=== PATIENT | female | born 1960 | race Caucasian/White ===

== ENCOUNTER 2019-12-20 12:59 | Inpatient (IN) | payer OTHER ==
[~2019-12-20] VITALS: Ht 165.1 cm; Wt 70.3 kg
[2019-12-20 13:00] VITALS: BP 132/72
[2019-12-20] MEDS ORDERED: FLUOXETINE HCL40 MG PO (13:05)
[2019-12-20] MEDS ORDERED: BACTRIM DS TAB1 EACH PO (13:06)
[2019-12-20] MEDS ORDERED: NORCO 5-325 TA1 EAC1 PO (13:07)
[2019-12-20 13:43] LABS: ABSOLUTE BASOPHILS 0.1 thou/uL (0.0-0.2); ABSOLUTE EOSINOPHILS 0.1 thou/uL (0.0-0.7); ABSOLUTE MONOCYTES 0.6 thou/uL (0.0-1.2); ABSOLUTE NEUTROPHILS 6.6 thou/uL (1.6-8.1); BASOPHILS 0.6 %; EOSINOPHILS 0.8 %; HEMATOCRIT 36.9 % (37.0-47.0); HEMOGLOBIN 12.6 gm/dL (12.0-15.0); LYMPHOCYTES 12.2 %; MCH 30.9 pg (26.0-34.0); MCHC 34.2 g/dL (28.0-37.0); MCV 90.3 fL (80.0-100.0); MONOCYTES 7.4 %; MPV 6.9 fl. (7.2-11.1); NUCLEATED RBCS 0 /100WBC; PLATELET COUNT* 400 thou/uL (150-400); RBC 4.09 mil/uL (4.20-5.00); RDW-CV 13.4 % (10.5-14.5); WBC 8.3 thou/uL (4.0-11.0)
[2019-12-20 13:54] LABS: CALCIUM 8.5 mg/dL (8.5-10.1)
[2019-12-20 13:58] LABS: APTT 21.5 Seconds (25.0-31.3); PROTIME 10.2 Seconds (9.20-11.50)
[2019-12-20 14:05] LABS: ALBUMIN 3.8 g/dL (3.4-5.0); TOTAL BILIRUBIN 0.3 mg/dL (<0.1-1.0)
[2019-12-20 14:35] LABS: URINE BILIRUBIN NEGATIVE (Negative); URINE BLOOD 1+ (Negative); URINE CLARITY CLEAR; URINE COLOR YELLOW; URINE GLUCOSE-RANDOM NEGATIVE (Negative); URINE KETONES NEGATIVE (Negative); URINE LEUKOCYTES-REFLEX NEGATIVE (Negative); URINE NITRITE-REFLEX NEGATIVE (Negative); URINE PROTEIN NEGATIVE (Negative); URINE UROBILINOGEN 0.2 E.U./dl (0.2-1.0)
[2019-12-20 14:37] LABS: MAGNESIUM 2.1 mg/dL (1.8-2.4); PHOSPHORUS* 3.9 mg/dL (2.5-4.9)
[2019-12-20 14:43] LABS: SQUAMOUS 0-3 Few /LPF (0-3)
[2019-12-20 14:44] LABS: BACTERIA-REFLEX 1-9 Few /HPF (None Seen); CALCIUM OXALATE 4-10 Moderate /LPF (None Seen); CASTS None Seen /LPF (None Seen); MUCUS 0-3 Light strn/LPF (None Seen); URINE RBC 0-2 Rare /HPF (0-2); URINE WBC-REFLEX 0-5 Rare /HPF (0-5)
[2019-12-20 17:39] VITALS: BP 101/59
[2019-12-20 18:08] VITALS: BP 106/59
[2019-12-20 20:45] VITALS: BP 119/61
[2019-12-21 07:20] LABS: ABSOLUTE BASOPHILS 0.1 thou/uL (0.0-0.2); ABSOLUTE EOSINOPHILS 0.1 thou/uL (0.0-0.7); ABSOLUTE LYMPHOCYTES 1.3 thou/uL (0.8-5.3); ABSOLUTE MONOCYTES 0.8 thou/uL (0.0-1.2); ABSOLUTE NEUTROPHILS 5.2 thou/uL (1.6-8.1); EOSINOPHILS 1.1 %; HEMOGLOBIN 11.5 gm/dL (12.0-15.0); LYMPHOCYTES 17.5 %; MCH 31.3 pg (26.0-34.0); MCHC 34.9 g/dL (28.0-37.0); MCV 89.8 fL (80.0-100.0); MONOCYTES 11.3 %; MPV 6.6 fl. (7.2-11.1); NUCLEATED RBCS 0 /100WBC; PLATELET COUNT* 359 thou/uL (150-400); POLYS 69.1 %; RBC 3.68 mil/uL (4.20-5.00); RDW-CV 13.3 % (10.5-14.5); WBC 7.5 thou/uL (4.0-11.0)
[2019-12-21 07:36] LABS: CALCIUM 8.4 mg/dL (8.5-10.1); CREATININE 0.8 mg/dL (0.6-1.3); POTASSIUM 3.8 mmol/L (3.5-5.1)
[2019-12-21 09:07] VITALS: BP 104/75
[2019-12-21 10:54] VITALS: BP 104/75
[2019-12-21] MEDS ORDERED: LORAZEPAM 1 MG T1 MG PO (14:30)
[2019-12-21] MEDS ORDERED: OXYCODONE HCL 55 MG PO (14:30)
== END 2019-12-21 16:31 | disposition home or self-care (01) | DRG 641 ==
LOC: M.ERS 12:59 → M.TBA-ER 14:14 → M.ORTHSURG 17:55
PROVIDERS: Family Medicine; ADMIT Family Medicine
DX: E86.0 Dehydration (principal); G89.18 Other acute postprocedural pain; F41.9 Anxiety disorder, unspecified; R79.1 Abnormal coagulation profile; Z79.899 Other long term (current) drug therapy; F32.9 Major depressive disorder, single episode, unspecified

== ENCOUNTER 2019-12-29 10:04 | Observation (INO) | payer OTHER ==
[~2019-12-29 10:04] MED LIST: BACTRIM DS TAB1 EACH PO; FLUOXETINE HCL40 MG PO; LORAZEPAM 1 MG T1 MG PO; NORCO 5-325 TA1 EAC1 PO; OXYCODONE HCL 55 MG PO
[2019-12-29] MEDS ORDERED: ASPIRIN325 PO (16:04)
[2019-12-29 19:50] VITALS: BP 128/72
--- NOTE | 2019-12-29 21:42 | OP ---
[facility] [address] [place] [place] [address] OPERATIVE REPORT Name: FADY MCGHEE Room: [address] Felicita.R.#: [id number] Admission: 12/29/19 Attend Phys: Minesh Larsen MD Discharge: Date of : 60 Report #: [id number] THIS REPORT FOR: //name// cc: Physician not on staff Physician not on staff ~ THIS REPORT FOR: //name// CC: TOM eBgum Physician staff PREOPERATIVE DIAGNOSES: 1. Right trimalleolar ankle fracture. 2. Status post spanning ankle external fixation, right. POSTOPERATIVE DIAGNOSES: 1. Right trimalleolar ankle fracture. 2. Right syndesmotic instability. 3. Spanning ankle external fixation, right. PROCEDURES PERFORMED: 1. Open reduction and internal fixation, right trimalleolar ankle fracture (fixation of distal fibula and medial malleolus). 2. Open reduction and internal fixation, right syndesmosis. 3. Removal of external fixation, right ankle. SURGEON: Ryan Begum DO RIGGER THIRD: 1. Mumtaz Medina DO 2. Suhail Mendez DO ANESTHESIA: General. ANTIBIOTICS: Ancef IV. FLUIDS: 750 mL lactated Ringer's. ESTIMATED BLOOD LOSS: 25 mL. COMPLICATIONS: None. SPECIMENS: None. DRAINS: None. CONDITION: The patient is stable to PACU. [address] [place] [address] OPERATIVE REPORT Name: FADY MCGHEE Room: [address] M.R.#: [id number] Admission: 12/29/19 Attend Phys: Minesh Larsen MD Discharge: Date of : 60 Report #: [id number] IMPLANTS: Ricky variable angle distal fibular locking plate with 3.5 cortical screws proximally and 3.5 unicortical locking screws distally, 4.0 cannulated fully threaded screws x 2 for the medial malleolus Arthrex titanium TightRope for syndesmosis. INDICATIONS FOR PROCEDURE: The patient presented to [facility] for operative treatment of her right ankle fracture. She was originally a patient of Dr. Allen. Dr. Allen contacted me personally last week regarding the patient's care. She had placed her into the external fixation when following her; however, her skin was still quite swollen, not ready for any surgical intervention. She believes that the patient would be ready by today. We therefore brought her in to my clinic for evaluation for which her skin was significantly better than what Dr. Allen reported with wrinkling in all areas of potential incisions. I went over with her the plan of surgery, risks and complications in detail and they agreed and wished to proceed. Again, addressed any questions they had in the preoperative area and they gave consent. DESCRIPTION OF PROCEDURE: I marked the right lower extremity in the presence of the operative team members. Everyone agreed this was correct. She was taken back to the operative suite, where a briefing was performed indicating correct patient, procedure, site, antibiotics and that implants were present and sterile. All team members agreed. General anesthetic was administered. We then performed our timeout as we would be removing the external fixation. A timeout indicating correct patient, procedure, site, antibiotics and that implants were present and sterile. All team members agreed. At that point in time, we disassembled the external fixation frame, removed the pins from the tibia, but left the pin in the calcaneus as I believe we will need to pull through this to help her get our length. We would prep that pin in. The removal of external fixation was uncomplicated. She was transferred over to the operative table in supine position, well-padded and secured appropriately. A well-padded tourniquet was placed proximally on the right lower extremity, which was then sterilely prepped and draped in standard fashion. We marked out our incisions standard for both medial and lateral approach for malleolus fixation. Esmarched the extremity and insufflated the tourniquet to 250 mmHg. Began laterally, scalpel through skin, careful soft tissue dissection identified the superficial peroneal nerve and protected it throughout the entirety of the case, visualized our fracture site. There was significantly decreased bone density and weakness and also significant comminution of the fracture site, this will not be amenable to any lag screw fixation. We needed to help regain length as that has been sitting in it and the external fixation shortened for quite a bit of time. This was anticipated. We therefore fixated the plate distally controlling for rotation and overall alignment with cortical screws unicortical drilling, measuring and placing them with centering the plate along the shaft. We were able to drill and place an 18 mm cortical screw proximal to the plate and use a lamina concrete spreader to help regain our length. With using the lamina [facility] [address] [place] [address] OPERATIVE REPORT Name: FADY MCGHEE Room: [address] [facility] Joe Partida.#: [id number] Admission: 12/29/19 Attend Phys: Minesh Larsen MD Discharge: Date of : 60 Report #: [id number] concrete spreader, we were able to regain length, did have to push on the lamina concrete spreader quite hard for this while also pulling through the external fixation traction pin along the calcaneus. We brought in C-arm and while obtaining mortise and AP views, we had shown that we had reestablished the length of the fibula as well as appropriate rotation. We pinned that into position, drilled and placed our first cortical screw that reestablished our length appropriately. We drilled and placed the remaining cortical screws proximally and one more distal locking screw for a total of 4 distally unicortical in nature. Removed any provisional fixation devices and we now had stability. We turned our attention medially, scalpel was taken through skin, careful soft tissue dissection to visualize the saphenous structures protected these throughout, cleaned out the fracture site, checked within the joint. No evidence of any loose debris or impediments or deltoid ligament entrapment. We reduced this anatomically, held in place with a dental pick, drilled K wires confirmed on multiplanar C-arm imaging that they were appropriate. We then drilled the near cortex, measured and placed a fully threaded cannulated screws. This held our reduction very nicely with good compression to the fracture site with a clamp placed prior to those screw placements. At this point in time, we removed the K wires. Fixation was excellent. External rotation stress testing and Cotton testing showed instability of the syndesmosis. We therefore openly reduced her syndesmosis by dissecting to the tib-fib space, visualized our reduction, place [id number] clamp. Multiplanar C-arm imaging confirmed that reduction. TightRope was turned on to the back table. We then drilled, passed our TightRope, tightened appropriately. Upon final tightening, removed the clamp, so that this could be seated into its natural location. External rotation stress test and Cotton testing were now showing a stable syndesmosis. Final C-arm images showed excellent reduction of our fracture and joint lines and syndesmosis, saved those images, dismissed C-arm, let down tourniquet, total time was 51 minutes, maintained hemostasis, thoroughly irrigated with normal saline, medially closed with 2-0 Monocryl for subcutaneous and 3-0 nylon for skin. Laterally, we closed with 0 Vicryl deep for coverage over the plate, 2-0 Monocryl for subcutaneous and 3-0 nylon for skin. Debriefing was performed where we confirmed procedure, blood loss and that all counts were correct and final. All team members agreed. Placed into a sterile very well-padded splint consisting of Xeroform gauze, 4 x 4s, soft roll, posterior UCL and Brennen wrap with the ankle molded into a neutral position while it hardened. She was extubated and transferred off the operating table, taken to PACU, stable. POSTOPERATIVE COURSE AND EVALUATION: I spoke with her family members per her permission. Addressed questions they had to their stated satisfaction. They are very thankful for my time and efforts. She was resting in PACU with stable vital signs, pain controlled, neurovascularly intact, tendons functioning appropriately. No pain out of proportion with passive stretching. PACU films showed stable internal fixation and fracture reduction and maintenance of stable joint lines. Discussed with the patient and family and the resident with orders that she should be taking deep venous thrombosis prophylaxis, this will be with [address] [address] OPERATIVE REPORT Name: FADY MCGHEE Room: [address] Joe Barboza#: [id number] Admission: 12/29/19 Attend Phys: Minesh Larsen MD Discharge: Date of : 60 Report #: [id number] aspirin 325 b.i.d. She will do this as directed until instructed otherwise. Mechanical DVT prophylaxis was explained to the patient as well as the family went over them concerning signs or symptoms regarding thrombotic events that would warrant immediate contact or even presentation to the Emergency Department. Nonweightbearing. Maintain the splint clean, dry and intact. Call anytime with questions or concerns. Followup appointments have already been made for them. <ELECTRONICALLY SIGNED> By: Ryan Begum DO 12/29/19 [id number] Begum DO /nt
[2019-12-30 00:15] VITALS: BP 125/69
[2019-12-30 04:00] VITALS: BP 146/78
--- NOTE | 2019-12-30 05:13 | NUR ---
PATIENT SLEPT WELL DURING THIS SHIFT. PT ABLE TO REPOSITION HERSELF IN BED. RT FOOT ELEVATED ON PILLOWS AND ICE PACKS IN PLACE. DRESSING C/D/I. PT WITH FLUIDS INFUSING PER DR ORDER. PT REQUESTED PAIN MEDICATION X3; TORADOL GIVEN TWICE AND OXY 5MG GIVEN X1. PT VOIDED PER BEDPAN COPIOUS AMOUNTS OF URINE AND ALSO DRANK APPROX THREE MUGS OF WATER. PT TOLERATED BOXED LUNCH WITH NO NAUSEA/VOMITING. FREQUENTLY USED ITEMS AND CALL LIGHT WITHIN REACH. SIDERAILS UPX4 PER PT REQUEST AND BED ALARM ON. WILL CONTINUE TO MONITOR.
[2019-12-30 05:21] LABS: ABSOLUTE LYMPHOCYTES 1.2 thou/uL (0.8-5.3); ABSOLUTE MONOCYTES 0.7 thou/uL (0.0-1.2); ABSOLUTE NEUTROPHILS 7.8 thou/uL (1.6-8.1); BASOPHILS 0.3 %; EOSINOPHILS 0.1 %; HEMATOCRIT 35.2 % (37.0-47.0); HEMOGLOBIN 11.8 gm/dL (12.0-15.0); MCHC 33.5 g/dL (28.0-37.0); MCV 92.4 fL (80.0-100.0); MONOCYTES 7.5 %; MPV 6.9 fl. (7.2-11.1); NUCLEATED RBCS 0 /100WBC; PLATELET COUNT* 470 thou/uL (150-400); POLYS 80.1 %; RDW-CV 13.4 % (10.5-14.5); WBC 9.8 thou/uL (4.0-11.0)
[2019-12-30 05:54] LABS: CALCIUM 8.7 mg/dL (8.5-10.1); CREATININE 0.8 mg/dL (0.6-1.3); POTASSIUM 4.2 mmol/L (3.5-5.1)
[2019-12-30 08:10] VITALS: BP 122/72
[2019-12-30 13:01] VITALS: BP 122/72
--- NOTE | 2019-12-30 14:00 | NUR ---
PATIENT DISCHARGED TO HOME. DISCHARGE PAPERS REVIEWED AND SIGNED. PRESCRIPTIONS AND INFORMATION SHEETS GIVEN. IV REMOVED. PATIENT DENIES ANY FURTHER NEEDS. PATIENT TAKEN BY WHEELCHAIR TO EXIT. LEFT WITH SISTER.
--- NOTE | 2019-12-30 14:05 | NUR ---
I have reviewed the documentation by LAYA HOWE from 12/30/19 to 12/30/19 and I concur with it. PATRICIA QUINTANILLA
== END 2019-12-30 14:00 | disposition home or self-care (01) ==
LOC: M.SUR 10:04 → M.3W 17:56 → M.SUR 18:15 → M.3W 18:15
PROVIDERS: Orthopaedic Surgery; ADMIT Internal Medicine
DX: S82.851A Displaced trimalleolar fracture of right lower leg, initial encounter for closed fracture (principal); X58.XXXA Exposure to other specified factors, initial encounter; Y93.89 Activity, other specified; Y92.89 Other specified places as the place of occurrence of the external cause; Y99.8 Other external cause status

== ENCOUNTER → 2020-01-26 | Outpatient (CLI) | payer OTHER ==
[~2020-01-26] MED LIST changes: +ASPIRIN325 PO
== END ==
LOC: M.LAB 12:55
DX: Z96.661 Presence of right artificial ankle joint (principal)